=== PATIENT | male | born 1960 | race Caucasian/White ===

== ENCOUNTER 2016-10-03 07:11 | Observation (INO) | payer MEDICARE ==
[2016-10-03] VITALS (9 sets, daily range): BP systolic 129–151; BP diastolic 73–97
[~2016-10-03] VITALS: Ht 185.4 cm; Wt 81.6 kg
[~2016-10-03 07:11] MED LIST: ALPR2TAB2 PO; ARIP20TA8 PO; CALC500T27 PO; CYAN500T17 PO; CYCL10TA2 PO; ESCI10TA10 PO; FENTANYL PF 100 MCG/2 ML VIAL. IV PRN; IV RINGERS,LACTATED 1000ML 1,000 ML IV SCH; LIDOCAINE 1% 1 ML SYRINGE. ID PRN; METH-38 PO; MULT-460 PO; NAPR500T8 PO; OMEG1CAP66 PO; ONDANSETRON PF 4 MG/2 ML VIAL. IV PRN; OXYC-244 PO; OXYC-323 PO; PENT30AM PO; PROAIR HFA8.5 GM INH; PROCHLORPERAZINE 10 MG/2 ML VIAL. IV PRN; TEMA30CA PO
[2016-10-03] MEDS ORDERED: OXYC-250 PO (07:43)
[2016-10-03] MEDS ORDERED: GELATIN SPONGE SIZE 100. ONE (07:58)
[2016-10-03] MEDS ORDERED: BUPIVACAINE 0.5% 50 ML VIAL. ONE (07:58)
[2016-10-03] MEDS ORDERED: LIDOCAINE 1%/EPI 1:100,000 20 ML VIAL. ONE (07:58)
[2016-10-03] MEDS ORDERED: THROMBIN 20,000 UNIT SPRAY.SYRN KIT TP ONE (07:59)
[2016-10-03] MEDS ORDERED: REMIFENTANIL 2 MG VIAL. IV ONE (08:11)
[2016-10-03] MEDS ORDERED: MIDAZOLAM HCL 2 MG/2 ML VIAL. ONE (08:11)
[2016-10-03] MEDS ORDERED: PHENYLEPHRINE 10 MG/ML VIAL. ONE (08:12)
[2016-10-03] MEDS ORDERED: ROCURONIUM 50 MG/5 ML VIAL. ONE (08:12)
[2016-10-03] MEDS ORDERED: PROPOFOL 20 ML IV ONE (08:12)
[2016-10-03] MEDS ORDERED: DEXAMETHASONE SOD PHOS 20 MG/5 ML VIAL. ONE (08:12)
[2016-10-03] MEDS ORDERED: LIDOCAINE 2% 100 MG/5 ML DISP.SYRIN. ONE (08:12)
[2016-10-03] MEDS ORDERED: PROPOFOL 50 ML IV ONE ×2 (08:12→10:11)
[2016-10-03] MEDS ORDERED: MINERAL OIL/PETROLATUM,WHITE OPHTH OINT 3.5GM TUBE. ONE (08:12)
[2016-10-03] MEDS ORDERED: DESFLURANE > 120 MINUTES IH ONE (08:12)
[2016-10-03] MEDS ORDERED: ONDANSETRON PF 4 MG/2 ML VIAL. ONE (08:12)
[2016-10-03] MEDS ORDERED: SUCCINYLCHOLINE 200 MG/10 ML VIAL. ONE (08:45)
[2016-10-03] MEDS ORDERED: GLYCOPYRROLATE 1 MG/5 ML VIAL. ONE (08:55)
[2016-10-03] MEDS: CEFAZOLIN 2GM PREMIX 50 ML IV PRN ×3 (09:05→16:03)
[2016-10-03] MEDS: BACITRACIN 50,000 UNIT in IV NORMAL SALINE 1000ML BAG 1,000 ML IRR ONE ×2 (09:20→09:27)
[2016-10-03] MEDS ORDERED: FENTANYL PF 100 MCG/2 ML VIAL. ONE (09:47)
[2016-10-03] MEDS ORDERED: REMIFENTANIL 1 MG VIAL. IV ONE (11:31)
--- NOTE | 2016-10-03 12:24 | PDOC ---
BRIEF OPERATIVE NOTE Date: Oct 03, 2016 Pre-Op Diagnosis recurrent lumbar disk herniation, lumbar radiculopathy Post-Op Diagnosis same Procedure Performed redo right L3-4 hemilaminotomy and discectomy Surgeon Jagdeep Head Charrer none Anesthesia Type: General Blood Loss 50mL Specimens Obtained disk and decompression Findings prominent herniated disk fragment that was caudally migrated from L3-4, extensive scar tissue Complications none apparent Additional Remarks neuromonitoring remained at least baseline throughout the procedure DREW VIDES MD Oct 03, 2016 12:23
[2016-10-03] MEDS ORDERED: ACETAMINOPHEN 325 MG TABLET. PO PRN (12:30)
[2016-10-03] MEDS ORDERED: MAG HYDROX/ALUMINUM HYDROX/SMC 30 ML ORAL.SUSP PO PRN (12:30)
[2016-10-03] MEDS ORDERED: ZOLPIDEM 5 MG TABLET. PO PRN (12:30)
[2016-10-03] MEDS ORDERED: OXYCODONE/APAP 5/325 TABLET. PO PRN (12:30)
[2016-10-03] MEDS ORDERED: NALOXONE 0.4 MG/ML VIAL. IV PRN (12:30)
[2016-10-03] MEDS ORDERED: 0.9 % SODIUM CHLORIDE 10 ML DISP.SYRIN. IV PRN (12:30)
[2016-10-03] MEDS ORDERED: DIPHENHYDRAMINE HCL 25 MG CAPSULE PO PRN (12:30)
[2016-10-03] MEDS ORDERED: CALCIUM CARBONATE 500 MG TAB.CHEW PO PRN (12:30)
[2016-10-03] MEDS ORDERED: ONDANSETRON PF 4 MG/2 ML VIAL. IV PRN (12:30)
[2016-10-03] MEDS ORDERED: NON FORMULARY ITEM (Albuterol Sulfate (Proair Hfa Inhaler) 1 PUFF) INH PRN (12:30)
[2016-10-03] MEDS ORDERED: DIPHENHYDRAMINE 50 MG/ML VIAL IV PRN (12:30)
[2016-10-03] MEDS ORDERED: MAGNESIUM HYDROXIDE 2,400 MG/30 ML ORAL.SUSP. PO PRN (12:30)
[2016-10-03] MEDS: FENTANYL PF 100 MCG/2 ML VIAL. IV PRN ×5 (12:35→19:28)
[2016-10-03] MEDS: MORPHINE SULFATE 2 MG/ML DISP.SYRIN. IV PRN ×2 (12:51→13:01)
[2016-10-03] MEDS: HYDROMORPHONE 2 MG/ML VIAL. IV PRN ×4 (13:05→14:01)
[2016-10-03] MEDS ORDERED: ALBUTEROL SULFATE 2.5 MG/3 ML NEBU. NEB PRN (13:45)
[2016-10-03] MEDS ORDERED: ALPRAZOLAM 1 MG TABLET PO PRN (13:45)
[2016-10-03] MEDS ORDERED: PENT1TAB PO (13:59)
[2016-10-03] MEDS: METHOCARBAMOL 750 MG TABLET PO SCH ×2 (14:48→19:28)
[2016-10-03] MEDS: FERROUS SULFATE 325 MG TABLET PO SCH (17:00)
[2016-10-03] MEDS: CALCIUM CARB/VIT D3 500/200 TABLET PO SCH (17:00)
[2016-10-03] MEDS: DOCUSATE SODIUM 100 MG CAPSULE PO SCH (19:28)
[2016-10-03] MEDS: SENNOSIDES/DOCUSATE 8.6/50MG TABLET. PO SCH (19:28)
[2016-10-03] MEDS: CALCIUM CARBONATE 500 MG TABLET PO SCH (19:29)
[2016-10-03] MEDS ORDERED: [UNRECOGNIZED DRUG - OTHER] PO SCH (21:00)
[2016-10-03] MEDS: OXYCODONE/APAP 5/325 TABLET. PO PRN (22:47)
[2016-10-04 03:10] VITALS: BP 137/83
[2016-10-04 06:08] VITALS: BP 144/92
[2016-10-04] MEDS ORDERED: ESCITALOPRAM 10 MG TABLET. PO SCH (09:00)
[2016-10-04] MEDS ORDERED: ARIPIPRAZOLE 5 MG TABLET. PO SCH (09:00)
[2016-10-04] MEDS ORDERED: CYANOCOBALAMIN (VITAMIN B-12) 1,000 MCG TABLET. PO SCH (09:00)
[2016-10-04] MEDS ORDERED: MULTIVITAMIN with MINERAL TABLET. PO SCH ×2 (09:00)
[2016-10-04] MEDS: CALCIUM CARB/VIT D3 500/200 TABLET PO SCH (09:26)
[2016-10-04] MEDS: OXYCODONE/APAP 5/325 TABLET. PO PRN (09:26)
[2016-10-04] MEDS: DOCUSATE SODIUM 100 MG CAPSULE PO SCH (09:27)
[2016-10-04] MEDS: METHOCARBAMOL 750 MG TABLET PO SCH ×2 (09:27→14:06)
[2016-10-04] MEDS: CALCIUM CARBONATE 500 MG TABLET PO SCH (09:27)
[2016-10-04] MEDS: SENNOSIDES/DOCUSATE 8.6/50MG TABLET. PO SCH (09:29)
[2016-10-04] MEDS: FERROUS SULFATE 325 MG TABLET PO SCH (09:35)
--- NOTE | 2016-10-04 10:43 | PDOC ---
SUBJECTIVE Subjective Reports incisional pain. Reports some residual tingling in RLE but no longer painful. Has ambulated with PT. OBJECTIVE Vital Signs Vital Signs Date Time Temp Pulse Resp B/P Pulse Ox O2 Delivery O2 Flow Rate FiO2 10/04/16 09:26 Room Air 10/04/16 08:15 Room Air 10/04/16 06:08 97.9 85 16 144/92 97 Room Air 97.9 10/04/16 03:10 98.0 79 16 137/83 95 Room Air 98.0 10/03/16 23:07 97.9 82 16 129/73 95 Room Air 97.9 10/03/16 22:47 18 Room Air 10/03/16 20:00 Room Air 10/03/16 19:30 97.6 92 18 147/95 94 Room Air 97.6 10/03/16 19:28 18 Room Air 10/03/16 18:00 97.6 79 20 151/90 97 Room Air 97.6 10/03/16 17:00 80 148/87 96 Room Air 10/03/16 16:30 98.0 87 18 140/83 97 Room Air 98.0 10/03/16 16:08 20 94 Room Air 10/03/16 16:08 20 Room Air 10/03/16 16:00 88 149/80 10/03/16 15:50 96 Room Air 10/03/16 15:30 97.3 92 20 139/88 95 Room Air 97.3 10/03/16 15:25 Room Air 10/03/16 15:00 80 140/89 10/03/16 14:49 Room Air 10/03/16 14:30 98.1 85 18 151/97 94 Room Air 98.1 10/03/16 14:01 99 Room Air 10/03/16 13:58 80 16 154/93 97 Room Air 10/03/16 13:45 97 Room Air 10/03/16 13:43 85 16 149/89 96 Room Air 10/03/16 13:28 74 14 154/96 96 Room Air 10/03/16 13:15 18 95 Room Air 10/03/16 13:13 98.7 84 16 160/94 97 Room Air 98.7 10/03/16 13:05 14 Room Air 10/03/16 13:01 16 Room Air 10/03/16 12:58 84 16 180/99 97 Room Air 10/03/16 12:51 16 Simple Mask 10/03/16 12:43 80 16 172/100 100 Simple Mask 10 10/03/16 12:40 16 Simple Mask 10/03/16 12:35 16 Room Air 10/03/16 12:30 Mask 10 10/03/16 12:28 98.7 89 16 165/106 100 Simple Mask 10 98.7 I & O Intake and Output 10/04/16 07:00 Intake Total 1530 ml Output Total 3925 ml Balance -2395 ml Intake Oral 1530 ml Output Urine Total 3925 ml PHYSICAL EXAM Physical Exam AAOx4, NAD, sitting in chair, CRUZ 5/5, sensation intact LT, dressing with some sang stain, dry ASSESSMENT/PLAN Assessment/Plan POD 1 redo lumbar 3-4 discectomy -recovering well thus far with improvement leg -incisional pain control -mobilization/PT -anticipate d/c if continues to do well Problems: DREW VIDES MD Oct 04, 2016 10:43
[2016-10-04] MEDS ORDERED: FENTANYL PF 100 MCG/2 ML VIAL. IV PRN (10:45)
[2016-10-04] MEDS ORDERED: OXYCODONE/APAP 7.5/325 TABLET. PO PRN ×2 (10:45)
[2016-10-04 11:45] VITALS: BP 138/89
--- NOTE | 2016-10-04 13:40 | PATHOLOGY ---
PATHOLOGY REPORT * * * * * * * * FINAL DIAGNOSIS: Segments of fibrocartilaginous, fibroadipose, skeletal muscle, and synovial tissue and bone, L3-4 disc and decompression: - Focal degenerative changes and scarring of fibrocartilaginous tissue. COMMENT: There is no evidence of an acute inflammatory process or malignancy. (JPM:all; d/t: 10/04/2016) REPORT ELECTRONICALLY SIGNED BY: Joey Olea M.D. DATE/TIME: 10/04/2016 13:39 * * * * * * * * GROSS PATHOLOGY: Received in formalin labeled "Kirna Ortega, lumbar 3-4 disc and decompression" are multiple segments of chambers, rubbery, and gritty tissue. The specimen measures 4.2 x 3.0 x 1.1 cm in aggregate dimensions. The tissue is submitted representatively in cassette A1. (CAA; 10/03/2016) INITIAL CPT CODE(S): A; 47107 Professional services performed by [facility] [place] [address] Technical services performed by [facility] at [address] [place] [address]. Dr. Rakesh Bhandari fax: SPECIMEN(S) RECEIVED: A.Lumbar 3-4 disc and decompression CLINICAL HISTORY: Recurrent disc herniation L3-4 PATIENT: KIRAN ORTEGA /AGE: 1006/30/1960 (Age: 56) PATIENT #: [id number] ALT CASE #: SPECIMEN COLLECTION DATE: 10/03/2016 SPECIMEN RECEIVED DATE: 10/03/2016 [facility] - [address] [place] [address] - PHONE: [phone] * * * END OF REPORT * * *
[2016-10-04] MEDS ORDERED: SENN1TAB7 PO (14:21)
[2016-10-04] MEDS ORDERED: METH750T2 PO (14:24)
--- NOTE | 2016-10-05 19:15 | OP ---
DATE OF SURGERY: 10/03/2016 SURGEON: Naren Vides M.D. ACCOUNTING MANAGER CONTROLLER: None. PREOPERATIVE DIAGNOSIS: Recurrent disk herniation at lumbar 3-4 with lumbar radiculopathy. POSTOPERATIVE DIAGNOSIS: Recurrent disk herniation at lumbar 3-4 with lumbar radiculopathy. PROCEDURE: Reexploration/redo right lumbar 3-4 hemilaminotomy with diskectomy. ANESTHESIA: General. COMPLICATIONS: None intraprocedurally. INDICATIONS FOR THE PROCEDURE: The patient is a pleasant 56-year-old gentleman who previously underwent a microdiscectomy at lumbar 3-4 for lumbar radiculopathy with complete resolution of his leg pain. He returned to clinic reporting that he had lifted a heavy object and had sudden onset of recurrence of this pain. Repeat imaging was obtained revealing a prominent recurrent disk herniation at lumbar 3-4 with significant mass effect. It was felt that reexploration with discectomy would be appropriate. Please refer to the patient's chart for additional detail. DESCRIPTION OF PROCEDURE: After informed consent was obtained, the patient was brought into the operating room. He was placed under general anesthesia. He was placed in the prone position on the Daniel frame. All pressure points were checked and padded appropriately. Neuro monitoring was instituted and baseline potentials were obtained. The lumbar region was prepped and draped in usual sterile fashion and the patient's previous lumbar incision was reopened with a 10 blade scalpel. Monopolar electrocautery was utilized to dissect the avascular midline into the spinous processes of lumbar 3-4. The dissection was carried out with a curette down the spinous processes to the right at this location to approach the prior hemilaminotomy site. Gentle dissection of scar tissue was carried out with a Kerrison rongeur as well as a Surry and a blunt nerve hook and then the scar tissue was removed with a pituitary as well as a Kerrison rongeur. A significant amount of scar tissue was encountered and was gently removed in this fashion to approach the adjacent thecal sac at the prior hemilaminotomy site. Additionally, the prior hemilaminotomy margins were dissected in this fashion as well. Once this was complete, the hemilaminotomy was extended caudally with Kerrison rongeur as the herniated disk fragment had some caudal migration. Once the thecal sac was clear of scar tissue and readily identified, a small annulotomy was performed at the region of lumbar 3-4 extending slightly caudally to the region where herniated disk fragment appeared to be under the annulus. Of note, fluoroscopy was utilized to verify the appropriate location prior to the decompression. Once the annulotomy was performed, a significant amount of disk material was encountered under pressure and this was removed in a piecemeal fashion with a micropituitary. Further disk material was gently teased posterolaterally with a blunt nerve hook as well as a Surry and subsequently removed with pituitary rongeur. A large amount of disk material was removed in this fashion. Upon completion of this, the adjacent neural elements were noted to be very well decompressed. This was verified with direct visualization as well as gentle palpation with a Surry and a Rodriguez ball. Neuromonitoring potentials were also noted to remain at least baseline throughout the duration of the procedure. Upon completion of decompression and discectomy, pristine hemostasis was achieved with FloSeal, cottonoids and some use of bipolar electrocautery. The wound was generously irrigated with antibiotic irrigation prior to the final closure. The muscles and the fascia were then reapproximated with 0 Vicryl in a simple interrupted fashion. Subcutaneous tissues were reapproximated with 2-0 Vicryl in an interrupted inverted fashion and the skin was reapproximated with 4-0 Vicryl in a running subcuticular fashion. Mastisol and Steri-Strips were applied and the wound was dressed with Telfa and Tegaderm. At the end of the procedure, all needle and sponge counts were correct x 2. The patient was extubated in the operating room and taken to recovery in stable condition. There were no intraprocedural complications apparent. NAREN VIDES MD DR: DAWSON/desmond JOB#: [id number] / [id number] SHEKHAR
[2016-10-30] MEDS ORDERED: ONDA4TAB10 SL (23:17)
== END 2016-10-04 15:30 | disposition home or self-care (01) ==
LOC: SURG 07:11 → 4 SOUTHEST 13:27
PROVIDERS: ADMIT Neurological Surgery; ATTEND Neurological Surgery
DX: M51.16 Intervertebral disc disorders with radiculopathy, lumbar region (principal)
CPT/HCPCS: 63030; 76000; 87641; 88304; 94250; 94640; 96374; 96376; 97162; 97530; G0238; G0378; G0379; G8978; G8979; J0330; J0690; J0780; J1100; J1170; J2250; J2270; J2405; J2704; J3010; J3490; J7030; 94760

== ENCOUNTER → 2017-02-13 | Outpatient (CLI) | payer MEDICARE ==
[2016-10-30 23:00] VITALS: BP 155/90
[~2017-02-13] MED LIST changes: -FENTANYL PF 100 MCG/2 ML VIAL. IV PRN; +GADOBUTROL 10 MMOL/10 ML VIAL IV ONE; -IV RINGERS,LACTATED 1000ML 1,000 ML IV SCH; -LIDOCAINE 1% 1 ML SYRINGE. ID PRN; +METH750T2 PO; +ONDA4TAB10 SL; -ONDANSETRON PF 4 MG/2 ML VIAL. IV PRN; +OXYC-250 PO; +PENT1TAB PO; -PROCHLORPERAZINE 10 MG/2 ML VIAL. IV PRN; +SENN1TAB7 PO
--- NOTE | 2017-02-13 14:26 | RAD ---
INDICATION: Increased back pain after discectomy. Tremors. TECHNIQUE: Sagittal T1, sagittal T2, sagittal STIR, sagittal postcontrast, axial T1, axial T2, and axial postcontrast sequences are provided. There is motion degradation from the patient's tremor. 8 mL of intravenous Gadavist was administered without complication. Comparison is from October 19, 2016. FINDINGS: There is no change in alignment. Edema in the endplates at L3-L4 has increased from prior study, greater on the right. Enhancement in the endplates at this level is again noted as well. Again, there is no gross bone destruction. There is no enhancement within this disc space. There is narrowing of the disc space. Edema at L5 extends into the right pedicle, also probably reactive. There is no worrisome marrow lesion. There is diffuse disc desiccation. The conus medullaris is normal in signal intensity and in position. It is only evaluated in sagittal plane. Mild degenerative disc disease and facet hypertrophy at L1-L2, L2-L3, L4-L5, and L5-S1 appears similar to prior study. There is no high-grade canal stenosis. At L3-L4, there is enhancing granulation tissue on the right with decrease in size of the postoperative fluid collection in the right paraspinous musculature, collection now measures 18 x 7 mm. The more superficial lobe noted previously has resolved. There is enhancing granulation tissue noted both dorsal and ventral to the thecal sac on the right as well as lateral to the sac. There is a disc bulge but no residual or recurrent herniation. There is facet and ligamentum flavum hypertrophy on the left. The epidural fat at this level is mildly prominent. Midline AP diameter of the thecal sac is narrowed to 8 mm, similar to prior. There is lateral recess narrowing, greater on the right where it appears to be secondary to enhancing granulation tissue. There is mild left and [id number] right foraminal narrowing. IMPRESSION: 1. Presumed reactive edema at L3-L4, increased from prior study. Given no collapse of the vertebral bodies or enhancement within the interspace, discitis and osteomyelitis appear less likely. 2. Postoperative findings of partial laminectomy and presumed microdiscectomy on the right at L3-L4. Decrease in size of the postoperative fluid collection along the laminectomy tract. 3. Degenerative changes in the lumbar spine appear similar to priors. Electronically signed by: Messi Harmon MD (02/13/2017 2:23 PM)
== END | disposition home or self-care (01) ==
LOC: MRI 12:53
PROVIDERS: ATTEND Neurological Surgery
DX: M47.896 Other spondylosis, lumbar region (principal)
CPT/HCPCS: 72158; A9585